=== PATIENT | female | born 1940 | race Caucasian/White ===

== ENCOUNTER 2020-09-30 13:50 | Emergency (ER) | payer MEDICARE, OTHER, SELFPAY ==
[2020-09-30 14:06] VITALS: BP 131/104; PULSE 97; RESP 24; TEMP 36.5; O2SAT 95; BMI 25.8
[2020-09-30 14:16] VITALS: BP 162/62; PULSE 94; RESP 23; TEMP 36.5; O2SAT 96
--- NOTE | 2020-09-30 14:20 | ED_ITS ---
HPI - Fall General: Chief Complaint: Fall Stated Complaint: FALL/BLEEDING FROM R. LEG Time Seen by Provider: 09/30/20 14:03 Source: patient and family () Mode of arrival: wheelchair Limitations: no limitations History of Present Illness: HPI Narrative: Patient is a nice 80-year-old female presents to ED today along with her for complaints of right lower extremity lacerations that she sustained after an accidental fall. Patient chronically has issues with gait and balance secondary to a previous CVA. She often uses a wheelchair and walks with a walker. states she was outside when she tripped over a rock and fell onto gravel. She states she struck the right side of her face. No LOC. No neck pain or headache. She sustained 2 lacerations to her right lower extremity. Last tetanus is unknown. Patient is on anticoagulation. complaint: fall Onset (ago): hour(s) Fall from: standing Fall witnessed: yes, by family Place fall occurred: home Loss of consciousness: None Prolonged down time: no Symptoms prior to fall: none Context: tripped/slipped Location of injury: face Location of injury - extremities: Right: lower leg Severity: mild Associated symptoms-after fall: Reports no associated symptoms; Denies chest pain, headache(s), lightheadedness or neck pain Review of Systems Const: Denies: fever(s) or chills Eyes: Denies: change in vision or blurry vision ENMT: Denies: odynophagia Card: Denies: chest pain, palpitations, irregular heart rhythm, lightheadedness, syncope or pre-syncope Resp: Denies: dyspnea GI: Denies: nausea or vomiting Musc: Reports: extremity pain (R LE); Denies: neck pain or back pain Skin/Breast: Reports: other (laceration R LE) Neuro: Reports: frequent falls; Denies: headache(s), numbness in extremities, weakness in extremities or sensory changes Physical Exam Const: COMMON NORMALS: no acute distress, no limitations and alert GENERAL APPEARANCE: cooperative ORIENTATION/CONSCIOUSNESS: Yes awake, Yes oriented to person and Yes oriented to place OTHER: chronic dementia-she is at her baseline per HENMT: COMMON NORMALS: normocephalic and atraumatic HEAD & SCALP: normocephalic and atraumatic FACE & SINUS IMAGES: 1. mild ecchymosis/contusion; does not appear overly tender Eye: COMMON NORMALS: Equal, round and reactive pupils present and EOMs intact bilaterally GENERAL EYE: appearance normal, both eyes and all related structures PUPIL: Yes Equal, round and reactive pupils present Neck/C-Spine: COMMON NORMALS: full ROM CERVICAL SPINE: Yes cervical ROM normal, No Cervical spine tenderness and No Paracervical muscle tenderness Resp: COMMON NORMALS: normal respiratory effort and clear to auscultation bilaterally AUSCULTATION: clear to auscultation bilaterally Cardio: COMMON NORMALS: regular rate and regular rhythm RATE: regular rate RHYTHM: regular rhythm Back/Pelvis: COMMON NORMALS: thoracic and lumbar spine normal to inspection, no thoracic nor lumbar tenderness and thoraco-lumbar ROM normal Extremity: COMMON NORMALS: full ROM GENERAL: Yes normal exam except as noted OTHER: two lacerations to R LE; no tendon/muscle/bony involvement; sensory intact Neuro: COMMON NORMALS: moves all extremities, no focal motor deficits and no sensory deficits noted SENSORIUM/ORIENTATION: Yes alert, Yes oriented to person and Yes oriented to place Skin: TRAUMA: laceration (R LE) Procedures Laceration Laceration 1: Site: lower extremity Side (If applicable): right Size (cm): 4.5 Description: linear Depth: simple, single layer Local Anesthetic: lidocaine 1% Amount of anesthesia used (mL): 2.0 Pre-repair: wound explored and irrigated extensively Skin layer closed with: nylon Size (cm): 4-0 Number of sutures: 9 Technique: simple, interrupted Laceration 2: Site: lower extremity Side (If applicable): right Size (cm): 3.5 Description: flap and irregular Depth: simple, single layer Local Anesthetic: lidocaine 1% Amount of anesthesia used (mL): 2.0 Pre-repair: wound explored and irrigated extensively Skin layer closed with: nylon Size (cm): 4-0 Number of sutures: 6 Technique: simple, interrupted Course Vital Signs: Vital signs: Vital Signs Temperature 97.7 F 09/30/20 14:16 Pulse Rate 94 09/30/20 14:16 Respiratory Rate 23 H 09/30/20 14:16 Blood Pressure 162/62 09/30/20 14:16 Pulse Oximetry 96 09/30/20 14:16 MDM - Fall MDM Narrative: Medical decision making narrative: CTs/XR negative. Lacerations were repaired as documented. She has a scheduled appointment with her PCP on Thursday. She may use this for follow-up. Wound care discussed at home. Sutures can be removed in 7 to 10 days. Imaging Data^: CT Head: Radiologist's impression: [facility] [place] [address] CT Scan Report Signed Patient: Mariza Carvajal Unit #: [id number] : 1940 Age/Sex: 80 / F ADM Date: 09/30/20 Loc: ER Room/Bed: Attending Dr: Ordering Provider/Ordering MD: Savannah Maloney Date of Service: 09/30/20 Procedure(s): CT head wo con* [id number] Accession Number(s): [id number] Report Number: [id number] PROCEDURE INFORMATION: Exam: CT Head Without Contrast Exam date and time: 09/30/2020 2:19 PM Age: 80 years old Clinical indication: Injury or trauma; Fall; Blunt trauma (contusions or hematomas) TECHNIQUE: Imaging protocol: Computed tomography of the head without contrast. Radiation optimization: All CT scans at this facility use at least one of these dose optimization techniques: automated exposure control; mA and/or kV adjustment per patient size (includes targeted exams where dose is matched to clinical indication); or iterative reconstruction. COMPARISON: No relevant prior studies available. RADIATION DOSE METRICS: Total DLP (mGy-cm): 873.34 FINDINGS: Brain: No intracranial hemorrhage. Moderate to severe diffuse cerebral atrophy. Extensive low attenuation signal change within the white matter suggestive of advanced chronic small vessel ischemic disease. Multiple old bilateral lacunar infarcts within the basal ganglia. No mass effect or midline shift. Cerebral ventricles: No ventriculomegaly. Paranasal sinuses: Visualized sinuses are unremarkable. No fluid levels. Mastoid air cells: Visualized mastoid air cells are well aerated. Bones/joints: Unremarkable. No acute fracture. Soft tissues: Unremarkable. CT/CT head wo con* [id number] IMPRESSION: 1. No acute intracranial abnormality. 2. Moderate diffuse cerebral atrophy, advanced sequela of chronic small vessel ischemic disease with multiple bilateral old lacunar infarcts in the basal ganglia. Radiation Dose CTDIVOL = (mGy): DLP = 873.34 (mGy-cm) Dictated By: Vladimir Mcleod DO Signed By: Vladimir Mcleod DO Signed Date/Time: 09/30/20 1521 DD/ 1520 CT facial: Radiologist's impression: [facility] [address] [place] [address] CT Scan Report Signed Patient: Mariza Carvajal Unit #: [id number] : 1940 Age/Sex: 80 / F ADM Date: 09/30/20 Loc: ER Room/Bed: Attending Dr: Ordering Provider/Ordering MD: Savannah Maloney Date of Service: 09/30/20 Procedure(s): CT facial bones wo con* [id number] Accession Number(s): [id number] Report Number: [id number] PROCEDURE INFORMATION: Exam: CT Maxillofacial Without Contrast Exam date and time: 09/30/2020 2:19 PM Age: 80 years old Clinical indication: Jaw pain and nose pain; Additional info: R maxillary contusion TECHNIQUE: Imaging protocol: Computed tomography images of the face without contrast. Radiation optimization: All CT scans at this facility use at least one of these dose optimization techniques: automated exposure control; mA and/or kV adjustment per patient size (includes targeted exams where dose is matched to clinical indication); or iterative reconstruction. COMPARISON: No relevant prior studies available. RADIATION DOSE METRICS: Total DLP (mGy-cm): 734.12 FINDINGS: Orbital cavity: Orbits are normal. Globes are unremarkable. Bones/joints: No acute fracture. Paranasal sinuses: Normal. No air-fluid levels. Soft tissues: Unremarkable. CT/CT facial bones wo con* [id number] IMPRESSION: No acute osseous abnormalities of the maxillofacial structures. Radiation Dose CTDIVOL = (mGy): DLP = 734.12 (mGy-cm) Dictated By: Vladimir Mcleod DO Signed By: Vladimir Mcleod DO Signed Date/Time: 09/30/20 152 DD/ 1523 XR R tib/fib: Radiologist's impression: [facility] [address] [place] [id number] XRay Report Signed Patient: Mariza Carvajal Unit #: [id number] : 1940 Age/Sex: 80 / F ADM Date: 09/30/20 Loc: ER Room/Bed: Attending Dr: Ordering Provider/Ordering MD: Savannah Maloney Date of Service: 09/30/20 Procedure(s): XR tibia fibula RT 2V [id number] Accession Number(s): [id number] Report Number: [id number] PROCEDURE INFORMATION: Exam: XR Right Tibia and Fibula Exam date and time: 09/30/2020 2:19 PM Age: 80 years old Clinical indication: Injury or trauma; Fall; Blunt trauma; Lower leg; Right; Additional info: Trauma/lacerations TECHNIQUE: Imaging protocol: XR Right tibia and fibula. Views: 2 views. COMPARISON: No relevant prior studies available. FINDINGS: Bones/joints: Intact without fracture. Soft tissues: Normal. XR/XR tibia fibula RT 2V [id number] IMPRESSION: No evidence of fracture. Dictated By: Vladimir Mcleod DO Signed By: Vladimir Mcleod DO Signed Date/Time: 09/30/201516 DD/ 151 Discharge Plan Discharge Patient Disposition: Home Clinical Impression: Fall on same level from tripping Contusion of face Qualifiers: Encounter type: initial encounter Qualified Code(s): S00.83XA - Contusion of other part of head, initial encounter Laceration of leg, right, multiple sites Qualifiers: Encounter type: initial encounter Qualified Code(s): S81.811A - Laceration without foreign body, right lower leg, initial encounter Condition: Stable Discharge Orders: Discharge ED (Routine); Ordered 09/30/20 Ordered By: Savannah Maloney Patient Instructions: Suture Care (ED), Laceration (ED) Activity Restrictions/Additional Instructions: Keep wound/laceration clean with warm soap and water twice daily. Monitor for signs of infection such as redness, swelling, increased pain, or drainage. Please seek medical re-evaluation if these occur. If you received sutures today these will need to be removed (unless you were told by the provider that they are absorbable). The provider should have discussed with you the length of time until removal-10 DAYS. Coding Level of Care Code ED Network Systems Operator for Ginger Paulson
--- NOTE | 2020-09-30 14:36 | PC.NURSE ---
two large lacerations on right fallon irrigated with 1000 ml NS and covered with 4x4 in prep for sutures.
[2020-09-30] MEDS: tetanus-diphtheria tox (adult) 0.5 mL SDV IM (14:41)
[2020-09-30] MEDS: lidocaine 2% INJ 20 mL INJECTION (16:08)
[2020-09-30 16:15] VITALS: BP 135/65; PULSE 24; RESP 24; O2SAT 93
== END 2020-09-30 16:18 | disposition home or self-care (01) ==
PROVIDERS: Emergency Provider Physician Assistant
DX: S81.811A Laceration without foreign body, right lower leg, initial encounter (principal); S00.83XA Contusion of other part of head, initial encounter; W18.09XA Striking against other object with subsequent fall, initial encounter; Z23 Encounter for immunization
CPT/HCPCS: 12004; 70450; 70486; 73590; 90471; 90714; 99283